=== PATIENT | female | born 2000 | race Asian ===

== ENCOUNTER 2020-04-01 23:28 | Emergency (ER) | payer OTHER ==
[2020-04-01 23:32] VITALS: BP 105/81; PULSE 89; TEMP 98.4; BMI 24.9
[2020-04-02] MEDS ORDERED: DIPHTH,PERTUSS(ACELL),TET 0.5 ML DISP.SYRIN IM ONE ×2 (00:47→01:46)
--- NOTE | 2020-04-02 01:02 | PDOC ---
Documentation entered by Shiloh Schmidt SCRIBE, acting as scribe for Luis A Greer MD. Luis A Greer MD: This documentation has been prepared by the guillermina, Shiloh Schmidt SCRIBE, under my direction and personally reviewed by me in its entirety. I confirm that the documentation accurately reflects all work, treatment, procedures, and medical decision making performed by me. Attending Attestation - Resident Resident Name: Juarez Estradahan - ED Attending Attestation I have performed the following: I have examined & evaluated the patient, The case was reviewed & discussed with the resident, I agree w/resident's findings & plan, Exceptions are as noted - HPI HPI: 04/02/20 00:44 The patient is a 19 year old female with no significant past medical history who presents to the emergency department with a laceration to the nose, s/p hitting her nose on the edge of the bed. Denies LOC, head pain or facial pain. - Physicial Exam PE: 04/08/20 19:54 Agree with documented exam - Medical Decision Making 04/08/20 19:54 Lac over bridge of nose, ?fx clean wound, close primarily f/u ent dc Discharge - Discharge Information Problems reviewed: Yes Clinical Impression/Diagnosis: Laceration Condition: Improved Disposition: HOME - Follow up/Referral Referrals: Shaun Arellano MD [Staff Physician] - - Patient Discharge Instructions Patient Printed Discharge Instructions: DI for Nose Fracture, DI for Laceration Repair -- Simple, DI for Minor Laceration Additional Instructions: Please make a follow up appointment with Dr. Arellano (referral provided here) within the next week. Please return to the ER in 7-10 days for suture removal. Please do not blow your nose. If you experience any new, worsening, or concerning symptoms, including difficulty breathing, worsening nose bleeding, pain over the face, or any other concerns, please return to the emergency room. - Post Discharge Activity
--- NOTE | 2020-04-02 01:13 | PDOC ---
History of Present Illness - General Chief Complaint: Bone Injury Stated Complaint: LAC Time Seen by Provider: 04/01/20 23:48 - History of Present Illness Initial Comments: Joseph Alvarez is a 19 y/o female with no reported PMH presenting today with laceration over her nose. Reports that she was at home when she hit her nose on the edge of her bunk bed. Denies LOC. Denies dizziness. Denies headache/vision changes. Denies chest pain/shortness of breath. Denies fever/chills. Denies abd pain. No nausea/vomiting. No respiratory distress. No facial pain or bruising. Reports mild bleeding from left nare. SocHx: reports feeling safe at home, work, and school, denies interpersonal violence Past History - Medical History Allergies/Adverse Reactions: Allergies Allergy/AdvReac Type Severity Reaction Status Date / Time No Known Allergies Allergy Verified 04/01/20 23:32 COPD: No - Immunization History Immunization Up to Date: Yes - Psycho-Social/Smoking History Smoking History: Never smoked - Substance Abuse Hx (Audit-C & DAST Scrn) How often the patient has a drink containing alcohol: Never Score: In Men: 4 or > Positive; In Women: 3 or > Positive: 0 Screen Result (Pos requires Nsg. Audit-10AR): Negative In the last yr the pt used illegal drug/Rx for NonMed reason: No Score: Yes response is considered Positive: 0 Screen Result (Positive result requires Nsg. DAST-10): Negative Review of Systems - Review of Systems Comments:: GENERAL/CONSTITUTIONAL: No fever or chills. No weakness._ HEAD, EYES, EARS, NOSE AND THROAT: No change in vision. No change in hearing. No sore throat. Reports left nare bleeding and pain over the bridge of the noise. CARDIOVASCULAR: No chest pain or shortness of breath_ RESPIRATORY: Denies cough, hemoptysis_ GASTROINTESTINAL: No nausea, vomiting, diarrhea or constipation._ GENITOURINARY: No dysuria, frequency, or change in urination._ MUSCULOSKELETAL: No joint or muscle swelling or pain. No neck or back pain._ SKIN: No rash_ NEUROLOGIC: No headache, vertigo, loss of consciousness, or change in strength/sensation._ ENDOCRINE: No increased thirst. No abnormal weight change_ HEMATOLOGIC/LYMPHATIC: No anemia, easy bleeding, or history of blood clots._ ALLERGIC/IMMUNOLOGIC: No hives or skin allergy._ *Physical Exam - Vital Signs Last Vital Signs Temp Pulse Resp BP Pulse Ox 98.4 F 89 18 105/81 98 04/01/20 23:30 04/01/20 23:30 04/01/20 23:30 04/01/20 23:30 04/01/20 23:30 - Physical Exam GENERAL: Awake, alert, and oriented to person/place/time, in no acute distress_ HEAD: Normocephalic. No bruising or TTP over frontal or maxilla facial bones. EYES: PERRLA, EOMI, sclera anicteric, conjunctiva clear_ ENT: Hearing grossly normal, oropharynx clear without exudates. No uvular deviation. Moist mucosa. Minimal swelling over the nasal bridge with TTP. No septal hematoma. Mild deformity of nasal bridge. Dried blood in left nare. NECK: Normal ROM, supple, no lymphadenopathy, JVD, or masses_ LUNGS: No distress, speaks in full sentences, clear to auscultation bilaterally _ HEART: Regular rate and rhythm, normal S1 and S2, no murmurs appreciated, peripheral pulses normal and equal bilaterally._ ABDOMEN: Soft, nontender, normoactive bowel sounds. No guarding, no rebound. No masses_ EXTREMITIES: Normal inspection, Normal range of motion, no edema. No clubbing or cyanosis_ NEUROLOGICAL: Cranial nerves II through XII grossly intact. Normal speech, normal gait, no focal sensorimotor deficits _ SKIN: Warm, Dry, normal turgor, no rashes or lesions noted_ Procedures - Laceration/Wound Repair Anterior Nose Wound Length: to 2.5 cm (1 cm) Wound Explored: clean, no foreign body present Wound's Depth, Shape: superficial, linear Irrigated w/ Saline: Yes Betadine Prep: No Anesthesia: 1% Lidocaine Amount of Anesthetic (ccs): 1 Wound Debrided: minimal Wound Repaired With: Sutures Suture Size/Type: 6:0, proline Number of Sutures: 2 Layer Closure: No Sterile Dressing Applied: No Splint Applied: No Sling Applied: No Medical Decision Making - Medical Decision Making 19F presenting with 1 cm laceration over bridge of nose and mild deformity after hitting her nose against the bunk bed. No focal neuro findings. No headache or obvious head trauma. No facial TTP. No LOC. Will repair lac and plan to d/c home with tylenol PRN and ENT f/u. Discharge - Discharge Information Problems reviewed: Yes Clinical Impression/Diagnosis: Laceration Condition: Improved Disposition: HOME - Admission No - Follow up/Referral Referrals: Shaun Arellano MD [Staff Physician] - - Patient Discharge Instructions Patient Printed Discharge Instructions: DI for Nose Fracture, DI for Laceration Repair -- Simple, DI for Minor Laceration Additional Instructions: Please make a follow up appointment with Dr. Arellano (referral provided here) within the next week. Please return to the ER in 7-10 days for suture removal. Please do not blow your nose. If you experience any new, worsening, or concerning symptoms, including difficulty breathing, worsening nose bleeding, pain over the face, or any other concerns, please return to the emergency room. - Post Discharge Activity
== END 2020-04-02 02:00 | disposition home or self-care (01) ==
LOC: JER 23:28
PROC: 0HQ1XZZ Repair Face Skin, External Approach (ICD-10-PCS; principal; 2020-04-01)
PROC: 3E0234Z Introduction of Serum, Toxoid and Vaccine into Muscle, Percutaneous Approach (ICD-10-PCS; 2020-04-02)
DX: S01.81XA Laceration without foreign body of other part of head, initial encounter (principal); W22.8XXA Striking against or struck by other objects, initial encounter
CPT/HCPCS: 90715; 99282-25